=== PATIENT | male | born 1990 | race Hispanic/Latino ===

== ENCOUNTER 2018-10-12 18:03 | Emergency (ER) | payer SELFPAY ==
[2018-10-12] MEDS ORDERED: Proparacaine 0.5% Opth 15 ML BOT ONE (19:05)
[2018-10-12] MEDS ORDERED: Fluorescein Opthalmic Strip ONE (19:05)
== END 2018-10-12 19:30 | disposition home or self-care (01) ==
LOC: ERS 18:03
DX: B30.9 Viral conjunctivitis, unspecified (principal)
CPT/HCPCS: 99282